=== PATIENT | female | born 1985 | race African-American/Black ===

== ENCOUNTER 2016-07-17 20:45 | Emergency (ER) | payer MEDICAID ==
[~2016-07-17] VITALS: Ht 177.8 cm; Wt 90.7 kg
[~2016-07-17 20:45] MED LIST: CYCLOBENZAPRINE10 MG ORAL; FLOXIN OTIC10 DROP LEFT EAR; IBUPROFEN600 MG ORAL; NORCO 5-325 TA1 EACH ORAL
[2016-07-17] MEDS ORDERED: NKM (21:02)
[2016-07-17 21:48] VITALS: BP 118/72
[2016-07-17] MEDS ORDERED: IBUPROFEN600 MG ORAL (22:47)
[2016-07-17] MEDS ORDERED: PLAN B ONE-STE1.5 MG PO (22:47)
[2016-07-17 22:55] VITALS: BP 118/72
--- NOTE | 2016-07-18 03:45 | Emergency Room Report ---
History of Present Illness General Chief Complaint: Upper Extremity Injury Source: Patient Present Illness HPI 30-year-old female presents ED complaining of right wrist pain times one week. States that she woke up one morning and felt pain in her right wrist. Patient believes she may have rolled on it while sleeping. Pain is a 7/10, throbbing, worse with flexion and extension. No other aggravating or relieving factors. Denies any other injuries. Denies any other associated symptoms Allergies: Coded Allergies: NO KNOWN ALLERGIES (Unverified Allergy, Unknown, 03/07/15) Patient History Past Medical History: none Past Surgical History: none Pertinent Family History: none Social History: Denies: alcohol use, drug use, smoking Last Menstrual Period: JUL 04 Now: No : 0 Para: 0 Immunizations: UTD Reviewed Nursing Documentation: PMH: Agreed, PSxH: Agreed Nursing Documentation-PMH Past Medical History: No Stated History Review of Systems All Other Systems: negative except mentioned in HPI Physical Exam Vital Signs Date Time Temp Pulse Resp B/P Pulse Ox O2 Delivery O2 Flow Rate FiO2 07/17/16 20:57 98.4 73 18 118/72 97 07/17/16 21:48 Room Air Sp02 EP Interpretation: reviewed, normal General Appearance: no apparent distress, alert, GCS 15, non-toxic Head: normocephalic Eyes: bilateral eye PERRL, bilateral eye normal inspection ENT: normal ENT inspection Neck: normal inspection Respiratory: normal inspection Cardiovascular #1: normal inspection Gastrointestinal: normal inspection Rectal: deferred Genitourinary: no CVA tenderness Musculoskeletal: normal range of motion, tender - R wrist Neurologic: alert, oriented x3, responsive, motor strength/tone normal, sensory intact, speech normal Psychiatric: normal inspection Skin: normal inspection Lymphatic: normal inspection Procedures Splinting Splinting : Consent: Verbal Pre-Made Type: velcro Splint: wrist Pre-Proc Neuro Vasc Exam: normal Post-Proc Neuro Vasc Exam: normal Patient Tolerated: Well Complications: None Medical Decision Making Diagnostic Impression: Primary Impression: Wrist sprain Qualified Codes: S63.501A - Unspecified sprain of right wrist, initial encounter ER Course Hospital Course 30-year-old F presents to ED complaining of R wrist pain Differential diagnoses include: Fracture, dislocation, sprain, contusion Clinical course Patient placed on stretcher. After initial history and physical, I ordered pain medications and Xrays of R wrist Xrays prelim read shows no acute fracture/dislocation. placed in velco wrist splint On reassessment patient is requesting prescription for Plan B. Is not sure if she is . Documented recent sexual encounter unprotected. Denies any vaginal bleeding or discharge. Urine shows patient is not Diagnosis - wrist sprain Stable and discharged to home with prescription for Motrin, plan B. apply ice, keep elevated. weight bear as tolerated. Followup with PMD. Return to ED if symptoms recur or worsen Other X-Ray Diagnostic Results Other X-Ray Diagnostic Results : X-Ray Ordered: R wrist EP Interpretation: Yes Findings: no fractures, no dislocation, no soft tissue swelling Number of Views: 3 Last Vital Signs Date Time Temp Pulse Resp B/P Pulse Ox O2 Delivery O2 Flow Rate FiO2 07/17/16 22:55 98.4 80 18 118/72 97 Room Air Status: improved Disposition: HOME, SELF-CARE Condition: Stable Scripts Levonorgestrel (PLAN B ONE-STEP) 1.5 Mg Tablet 1.5 MG PO ONCE, #1 TAB Prov: RICKEY ECHAVARRIA M.D. 07/17/16 Ibuprofen* (MOTRIN*) 600 Mg Tablet 600 MG ORAL Q8H Y for For Pain, #30 TAB 0 Refills Prov: RICKEY ECHAVARRIA M.D. 07/17/16 Referrals: [facility],REFERRING (PCP) Patient Instructions: Wrist Sprain RICKEY ECHAVARRIA M.D. Jul 18, 2016 03:45
--- NOTE | 2016-07-18 13:36 | Diagnostic Imaging Report ---
Clinical Indication:PAIN Technique: 3 views of the right wrist Comparison: None Findings: No acute fractures. No dislocations. Joint spaces are preserved. There is ulnar minus variance incidentally noted Impression: No acute process This agrees with the preliminary interpretation provided by the emergency room physician
== END 2016-07-17 22:55 | disposition home or self-care (01) ==
LOC: EMR 22:52
DX: S63.501A Unspecified sprain of right wrist, initial encounter (principal); X58.XXXA Exposure to other specified factors, initial encounter; Y92.9 Unspecified place or not applicable; Y99.8 Other external cause status
CPT/HCPCS: 29260; 81025; 99284

== ENCOUNTER 2016-10-23 00:28 | Emergency (ER) | payer MEDICAID ==
[~2016-10-23] VITALS: Ht 177.8 cm; Wt 90.7 kg
[~2016-10-23 00:28] MED LIST changes: +NKM; +PLAN B ONE-STE1.5 MG PO
[2016-10-23 01:30] VITALS: BP 104/72
[2016-10-23] MEDS ORDERED: TYLENOL EXTRA500 MG ORAL (01:48)
[2016-10-23] MEDS ORDERED: BACTRIM DS TAB1 EAC1 ORAL (01:48)
[2016-10-23] MEDS ORDERED: KEFLEX500 MG ORAL (01:48)
[2016-10-23 01:50] VITALS: BP 104/72
--- NOTE | 2016-10-23 06:57 | Emergency Room Report ---
History of Present Illness General Chief Complaint: Skin Rash/Abscess Source: Patient Present Illness HPI 30-year-old female presents ED complaining of pain and swelling to the left thigh. States the last 3 days she noticed an abscess. Fluctuance noted. Painful. 8/10 pain. Nonradiating. Denies fevers or chills. Patient states she has had abscess in the past. Patient also is complaining of some pain to her scalp. Notes flaking skin. Denies any bleeding. No other aggravating relieving factors. Denies any other associated symptoms Allergies: Coded Allergies: NO KNOWN ALLERGIES (Unverified Allergy, Unknown, 03/07/15) Patient History Past Medical History: none Past Surgical History: none Pertinent Family History: none Social History: Denies: alcohol use, drug use, smoking Last Menstrual Period: October Now: No Immunizations: UTD Reviewed Nursing Documentation: PMH: Agreed, PSxH: Agreed Nursing Documentation-PMH Past Medical History: No Stated History Review of Systems All Other Systems: negative except mentioned in HPI Physical Exam Vital Signs Date Time Temp Pulse Resp B/P Pulse Ox O2 Delivery O2 Flow Rate FiO2 10/23/16 00:48 98.2 70 16 104/72 98 Room Air Sp02 EP Interpretation: reviewed, normal General Appearance: normal inspection Head: normocephalic, other - dry scalp, flaking noted Eyes: bilateral eye PERRL, bilateral eye normal inspection ENT: normal ENT inspection Neck: normal inspection Respiratory: normal inspection Cardiovascular #1: normal inspection Gastrointestinal: normal inspection Rectal: deferred Genitourinary: no CVA tenderness Musculoskeletal: normal inspection Neurologic: alert, oriented x3, responsive, motor strength/tone normal, sensory intact, speech normal Psychiatric: normal inspection Skin: other - abscess L inner thigh - fluctuant. surrounding erythema/ induration Lymphatic: normal inspection Medical Decision Making Diagnostic Impression: Primary Impression: Abscess Additional Impression: Scalp irritation ER Course Hospital Course 30-year-old female presents to ED with pain and swelling to left thigh. Pain to the scalp Differential diagnoses include: Cellulitis, dermatitis, insect bite, abscess Clinical course Patient placed on stretcher. After initial history, physical exam reveals a female in no acute distress. On exam there is fluctuant and erythema to the left inner thigh. No discharged noted. I explained to patient is in abscess which will require drainage and antibiotics. Patient refuses I and D; wants to try antibiotics and warm compresses first On exam there is some flaking of skin to the scalp between her daniel. No erythema or fluctuance. Recommend followup with dermatology Diagnosis - abscess, scalp irritation stable and discharged to home with prescription for bactrim, keflex. Instructed to followup with PMD. Instructed return to ED if symptoms recur or worsen Last Vital Signs Date Time Temp Pulse Resp B/P Pulse Ox O2 Delivery O2 Flow Rate FiO2 10/23/16 01:50 98.2 16 104/72 98 Room Air 10/23/16 00:48 70 Status: improved Disposition: HOME, SELF-CARE Condition: Stable Scripts Acetaminophen* (TYLENOL EXTRA STRENGTH*) 500 Mg Tablet 500 MG ORAL Q8H Y for Prn Headache/Temp > 101, #30 TAB 0 Refills Prov: RICKEY ECHAVARRIA M.D. 10/23/16 Trimethoprim/Sulfamethoxazole 160/800* (BACTRIM DS TABLET*) 1 Each Tablet 1 TAB ORAL Q12H, #14 TAB 0 Refills Prov: RICKEY ECHAVARRIA M.D. 10/23/16 Cephalexin* (KEFLEX*) 500 Mg Capsule 500 MG ORAL Q6H, #28 CAP 0 Refills Prov: RICKEY ECHAVARRIA M.D. 10/23/16 Referrals: [facility],REFERR[facility] (PCP) Patient Instructions: Abscess RICKEY ECHAVARRIA M.D. October 23, 2016 06:57
== END 2016-10-23 01:50 | disposition home or self-care (01) ==
LOC: EMR 01:00
DX: L02.416 Cutaneous abscess of left lower limb (principal); L98.9 Disorder of the skin and subcutaneous tissue, unspecified
CPT/HCPCS: 99284

== ENCOUNTER 2016-11-12 14:41 | Emergency (ER) | payer MEDICAID ==
[~2016-11-12] VITALS: Ht 177.8 cm; Wt 90.7 kg
[~2016-11-12 14:41] MED LIST changes: +BACTRIM DS TAB1 EAC1 ORAL; +KEFLEX500 MG ORAL; +TYLENOL EXTRA500 MG ORAL
--- NOTE | 2016-11-12 14:57 | Emergency Room Report ---
History of Present Illness General Chief Complaint: Asthma Source: Patient Present Illness HPI Patient states that she has a history of asthma. She states that the asthma only flares whenever she has a respiratory infection. She states that she felt congested and has had coughing and shortness of breath for the past 3 days. She denies chest pain. No abdominal pain. She denies nausea or vomiting. She states that she has been using her albuterol inhaler without relief. She has no other complaints. Allergies: Coded Allergies: NO KNOWN ALLERGIES (Unverified Allergy, Unknown, 03/07/15) Patient History Past Medical History: see triage record, asthma Social History: Denies: alcohol use, drug use, smoking Last Menstrual Period: 10/18/16 Now: No Reviewed Nursing Documentation: PMH: Agreed, PSxH: Agreed Nursing Documentation-PMH Past Medical History: No History, Except For Hx Asthma: Yes - bronchitis Review of Systems All Other Systems: negative except mentioned in HPI Physical Exam Vital Signs Date Time Temp Pulse Resp B/P Pulse Ox O2 Delivery O2 Flow Rate FiO2 11/12/16 14:51 97.9 99 14 129/85 99 Room Air Sp02 EP Interpretation: reviewed, normal General Appearance: no apparent distress, alert, GCS 15, non-toxic Head: normocephalic, atraumatic Eyes: bilateral eye PERRL, bilateral eye normal inspection ENT: hearing grossly normal, normal pharynx, no angioedema, normal voice Neck: full range of motion, supple/symm/no masses Respiratory: chest non-tender, no respiratory distress, no retraction, no accessory muscle use, speaking full sentences, wheezing - mild end-expiratory Cardiovascular #1: regular rate, rhythm, no edema Gastrointestinal: normal bowel sounds, non tender, soft, non-distended, no guarding, no rebound Rectal: deferred Musculoskeletal: back normal, gait/station normal, normal range of motion, non- tender Neurologic: alert, oriented x3, responsive, motor strength/tone normal, sensory intact, speech normal Psychiatric: judgement/insight normal, memory normal, mood/affect normal, no suicidal/homicidal ideation Skin: normal color, no rash, warm/dry, well hydrated Medical Decision Making Diagnostic Impression: Primary Impression: Asthma exacerbation Additional Impression: URI (upper respiratory infection) ER Course This patient has a clinical presentation consistent with asthma exacerbation. Patient has a history of asthma and has wheezing on physical exam. The patient was given albuterol and Atrovent nebulizer treatments. The patient was also given prednisone orally. The patient had significant improvement in subjective shortness of breath. The patient's lung exam improved significantly. I will also treat the patient with a course of antibiotics as this has been shown to improve the course of an asthma exacerbation. The patient was given close return precautions and followup instructions. Labs Test 11/12/16 14:57 Urine Color Pale yellow Urine Appearance Clear Urine pH 8 (4.5-8.0) Urine Specific [place]in 1.015 (1.005-1.035) Urine Protein Negative (NEGATIVE) Urine Glucose (UA) Negative (NEGATIVE) Urine Ketones Negative (NEGATIVE) Urine Occult Blood 1+ (NEGATIVE) Urine Nitrite Negative (NEGATIVE) Urine Bilirubin Negative (NEGATIVE) Urine Urobilinogen Normal MG/DL (0.0-1.0) Urine Leukocyte Esterase 1+ (NEGATIVE) Urine RBC 0-2 /HPF (0 - 2) Urine WBC 2-4 /HPF (0 - 2) Urine Squamous Epithelial Cells Moderate /LPF (NONE/OCC) Urine Bacteria Few /HPF (NONE) Urine HCG, Qualitative Negative Urine Opiates Screen Negative (NEGATIVE) Urine Barbiturates Screen Negative (NEGATIVE) Phencyclidine (PCP) Screen Negative (NEGATIVE) Urine Amphetamines Screen Negative (NEGATIVE) Urine Benzodiazepines Screen Negative (NEGATIVE) Urine Cocaine Screen Negative (NEGATIVE) Urine Marijuana (THC) Screen Positive (NEGATIVE) Chest X-Ray Diagnostic Results Chest X-Ray Ordered: Yes # of Views/Limited/Complete: 1 View Interpretation: no consolidation, no effusion, no pneumothorax, no acute cardiopulmonary disease Indication: Shortness of Breath Impression: No acute disease Date Electronically Signed: Nov 12, 2016 Time Electronically Signed: 15:12 Interpreting ER Physician: Khai Quiles Last Vital Signs Date Time Temp Pulse Resp B/P Pulse Ox O2 Delivery O2 Flow Rate FiO2 11/12/16 14:51 97.9 99 14 129/85 99 Room Air Status: improved Disposition: HOME, SELF-CARE Condition: Improved Patient Instructions: Asthma, Adult AYANNA QUILES D.O. Nov 12, 2016 14:57
[2016-11-12] MEDS ORDERED: PredniSONE 20mg tab ORAL ONE (15:00)
[2016-11-12] MEDS ORDERED: Albuterol ud Inhalation HHN ONE (15:00)
[2016-11-12 15:35] LABS: KETONES,URINE NEGATIVE (NEGATIVE); LEUKOCYTE ESTERASE ,URINE 1+ (NEGATIVE); NITRITE,URINE NEGATIVE (NEGATIVE); PH,URINE 8 (4.5-8.0); PROTEIN,URINE NEGATIVE (NEGATIVE); UROBILINOGEN,URINE NORMAL MG/DL (0.0-1.0)
[2016-11-12 15:52] LABS: APPEARANCE,URINE CLEAR
[2016-11-12 16:05] LABS: BACTERIA,URINE FEW /HPF; RBC,URINE 0-2 /HPF (0 - 2); SQUAMOUS EPITHELIAL CELL,UR MODERATE /LPF (NONE/OCC)
--- NOTE | 2016-11-12 16:06 | Diagnostic Imaging Report ---
Indication: SOB Technique: One view of the chest Comparison: none Findings: Atelectatic changes are seen at the right lung base, left perihilar region, left infrahilar region. The lungs and pleural spaces are otherwise clear. Heart size is normal Impression: Mild atelectatic changes. No acute cardiopulmonary process otherwise
[2016-11-12] MEDS ORDERED: PREDNISONE20 MG ORAL (16:27)
[2016-11-12] MEDS ORDERED: ZITHROMAX250 MG ORAL (16:27)
[2016-11-12 16:30] VITALS: BP 129/85
[2016-11-12] MEDS ORDERED: ALBUTEROL SULF8.5 GM INH (16:33)
[2016-11-12 16:40] VITALS: BP 129/85
[2016-11-12] MEDS ORDERED: ROBITUSSIN COU237 M1 PO (16:40)
== END 2016-11-12 16:40 | disposition home or self-care (01) ==
LOC: EMR 15:30
DX: J45.901 Unspecified asthma with (acute) exacerbation (principal); J06.9 Acute upper respiratory infection, unspecified
CPT/HCPCS: 71010; 80300; 81003; 81025; 94640; 99283

== ENCOUNTER 2017-02-07 21:53 | Emergency (ER) | payer MEDICAID ==
[~2017-02-07] VITALS: Ht 177.8 cm; Wt 90.7 kg
[~2017-02-07 21:53] MED LIST changes: +ALBUTEROL SULF8.5 GM INH; +PREDNISONE20 MG ORAL; +ROBITUSSIN COU237 M1 PO; +ZITHROMAX250 MG ORAL
[2017-02-07] MEDS ORDERED: CLARITIN10 M2 ORAL (22:10)
[2017-02-07 22:15] VITALS: BP 109/67
[2017-02-07] MEDS ORDERED: Tetracaine 0.5% Opth Soln LEFT EYE ONE (22:30)
[2017-02-07] MEDS ORDERED: Fluorescein Strips LEFT EYE ONE (22:30)
[2017-02-07] MEDS ORDERED: POLYTRIM OP SOL10 ML OPHTHALM (22:53)
[2017-02-07] MEDS ORDERED: IBUPROFEN600 MG ORAL (22:53)
--- NOTE | 2017-02-07 22:54 | Emergency Room Report ---
History of Present Illness General Chief Complaint: Eye Problems Source: Patient Present Illness HPI Is a 31-year-old female with no similar past medical history. She presents with the eye redness and pain. Onset for last couple days. No fever chills but no nausea vomiting. Does have some drainage. Denies any other complaint. Similar symptom in the past. No foreign body. Allergies: Coded Allergies: NO KNOWN ALLERGIES (Unverified Allergy, Unknown, 03/07/15) Patient History Past Medical History: see triage record, old chart reviewed Past Surgical History: other Pertinent Family History: none Social History: Denies: smoking Last Menstrual Period: 01/18/17 Now: No Immunizations: other Reviewed Nursing Documentation: PMH: Agreed, PSxH: Agreed Nursing Documentation-PMH Past Medical History: No History, Except For Hx Asthma: Yes - bronchitis, seasonal allergies Review of Systems Eye: Reports: eye pain, Denies: blurred vision ENT: Denies: ear pain, nose congestion, throat swelling Respiratory: Denies: cough, shortness of breath Cardiovascular: Denies: chest pain, palpitations Gastrointestinal: Denies: abdominal pain, diarrhea, nausea, vomiting Musculoskeletal: Denies: back pain, joint pain Skin: Denies: rash Neurological: Denies: headache, numbness Endocrine: Denies: increased thirst, increased urine Hematologic/Lymphatic: Denies: easy bruising All Other Systems: negative except mentioned in HPI Physical Exam Vital Signs Date Time Temp Pulse Resp B/P (MAP) Pulse Ox O2 Delivery O2 Flow Rate FiO2 02/07/17 22:05 97.7 75 16 109/67 99 Room Air vitals normal Sp02 EP Interpretation: reviewed, normal General Appearance: well appearing, no apparent distress, alert Head: normocephalic, atraumatic Eyes: left eye other - left conjunctiva injected. No FB. no abrasion, bilateral eye PERRL, bilateral eye EOMI ENT: hearing grossly normal, normal pharynx Neck: full range of motion, supple, no meningismus Respiratory: chest non-tender, lungs clear, normal breath sounds Cardiovascular #1: regular rate, rhythm, no murmur Gastrointestinal: normal bowel sounds, non tender, no mass, no organomegaly, no bruit, non-distended Musculoskeletal: back normal, gait/station normal, normal range of motion Psychiatric: mood/affect normal Skin: warm/dry Medical Decision Making Diagnostic Impression: Primary Impression: Left conjunctivitis Qualified Codes: H10.32 - Unspecified acute conjunctivitis, left eye ER Course Present with red eye. Could be from a conjunctivitis. Most likely viral. She may have some mild obstruction of the tear duct. No evidence of visual problem. No foreign body. Negative Butch sign. No globe rupture. Last Vital Signs Date Time Temp Pulse Resp B/P (MAP) Pulse Ox O2 Delivery O2 Flow Rate FiO2 02/07/17 22:15 97.7 16 109/67 99 Room Air 02/07/17 22:05 75 Status: improved Disposition: HOME, SELF-CARE Condition: Stable Scripts Ibuprofen* (MOTRIN*) 600 Mg Tablet 600 MG ORAL Q8H Y for For Pain, #30 TAB 0 Refills Prov: NORMA MARY M.D. 02/07/17 Polymyxin/Trimethoprim (Polytrim Eye Drops) 10 Ml Drops 2 DROP OPHTHALM THREE TIMES A DAY, #1 EA Instill in affected eye for 7 days Prov: NORMA MARY M.D. 02/07/17 Patient Instructions: Bacterial Conjunctivitis, [id number] Additional Instructions: Clean eyelids with baby shampoo. Follow up with your doctor in 2-3 days if not better. Return if worse. NORMA MARY M.D. Feb 07, 2017 22:53
[2017-02-07 23:06] VITALS: BP 109/67
== END 2017-02-07 23:04 | disposition home or self-care (01) ==
LOC: EMR 22:29
DX: H10.9 Unspecified conjunctivitis (principal)
CPT/HCPCS: 99284